=== PATIENT | female | born 1930 | race Caucasian/White ===

== ENCOUNTER 2017-05-29 11:25 | Emergency (ER) | payer OTHER ==
[~2017-05-29] VITALS: Ht 167.6 cm; Wt 65.0 kg
[~2017-05-29 11:25] MED LIST: ASPI81TA82 PO; LISI-360 PO; METO50TA PO; POTA-267 PO; SENN8.6T25 PO; VITA20002 PO; VITA500T10 PO
[2017-05-29 11:30] VITALS: BP 230/103; PULSE 87; RESP 16; TEMP 98.8; O2SAT 95
[2017-05-29] MEDS ORDERED: SODIUM CHLORIDE 0.9% FLUSH 10 ML FLUSH IVF PRN (11:45)
--- NOTE | 2017-05-29 11:45 | PD ---
HPI Chief Complaint: dyspnea Time Seen by Provider: 11:38 Travel History International Travel<30 days: No Contact w/Intl Traveler<30days: No History of Present Illness HPI Patient comes in by EMS complaining of shortness of breath ongoing intermittently for a while, but denies being on an inhaler. Patient states she started having issues with asthma when she turned 71, but does not use an inhaler. Patient states she had an episode yesterday that resolved. Patient states she was talking on the phone with a friend when the episode began today and they called 911 on her. Patient received 2 doses of albuterol and Solu- Medrol 125mg in route this seemed to improve her symptoms. Patient denies any symptoms currently. Denies any chest pain, fevers, cough, nausea, vomiting, abdominal pain, headaches, dizziness, change in vision, loss change in bowel or bladder, numbness or tingling anywhere, neck pain, or back pain. Patient states she has not taken her blood pressure medicine in 2 days secondary to not remembering. Patient states she does not take them on a regular basis as she is not good at remembering to take pills. PFSH Past Medical History Anxiety: Yes Depression: No Cancer: No Cardiovascular Problems: Yes (AORTIC INSUFF, VALVE REPLACEMENT) Diminished Hearing: No Endocrine: No Gastrointestinal Disorders: No Genitourinary: No Hypertension: Yes Immune Disorder: No Implanted Vascular Access Dvce: Yes Musculoskeletal: No Neurologic: Yes Psychiatric: Yes Reproductive: No Respiratory: Yes (ASTHMA) Integumentary: Yes (PSORIASIS) Past Surgical History Cardiac Surgery: Yes (VALVE REPLACEMENT) Joint Replacement: Yes (RIGHT HIP) Oral Surgery: Yes (T & A) Pacemaker: No Tonsillectomy: Yes Social History Alcohol Use: No Tobacco Use: No Substance Use: No Allergies-Medications (Allergen,Severity, Reaction): Coded Allergies: No Known Allergies (Unverified , 05/29/17) Reported Meds & Prescriptions Reported Meds & Active Scripts Active Prednisone 20 Mg Tab 20 Mg PO BID 3 Days Start 05/30/17 Ventolin Hfa 18 GM Inh (Albuterol Sulfate) 90 Mcg/Act Aer 2 Puff INH Q4-6H PRN Use with MDI spacer given to you today. Reported Metoprolol Tartrate 50 Mg Tab 50 Mg PO DAILY Lisinopril 10 Mg Tab 10 Mg PO DAILY Losartan (Losartan Potassium) 25 Mg Tab 12.5 Mg PO DAILY Furosemide 20 Mg Tab 20 Mg PO BID Naproxen 500 Mg Tab 500 Mg PO BID Review of Systems Except as stated in HPI: all other systems reviewed are Neg Physical Exam Narrative GENERAL: Well-developed, well nourished, in no acute distress, and non-ill appearing. SKIN: Focused skin assessment warm and dry. HEAD: Atraumatic. Normocephalic. EYES: Pupils equal and round. EOMI. No scleral icterus. No injection or drainage. ENT: No nasal bleeding or discharge. Mucous membranes pink and moist. NECK: Trachea midline. No JVD. Supple. No nuclear rigidity. CARDIOVASCULAR: Regular rate and rhythm. Murmur appreciated. Radial pulses 2+ , intact, and equal bilaterally. RESPIRATORY: No accessory muscle use. No respiratory distress. Clear to auscultation. Breath sounds equal bilaterally. GASTROINTESTINAL: Abdomen soft, non-tender, nondistended, and no guarding. Hepatic and splenic margins not palpable. No pulsatile mass. MUSCULOSKELETAL: No obvious deformities. No clubbing. No cyanosis. Trace edema bilateral lower extremities MELBA hose in place. Full range of motion. NEUROLOGICAL: Awake and alert. No obvious cranial nerve deficits. Motor grossly within normal limits. Normal speech. PSYCHIATRIC: Appropriate mood and affect; insight and judgment normal. Data Data Last Documented VS Vital Signs Date Time Temp Pulse Resp B/P (MAP) Pulse Ox O2 Delivery O2 Flow Rate FiO2 05/29/17 15:55 74 18 146/66 (92) 94 05/29/17 15:13 Room Air 05/29/17 12:52 98.3 2.00 Orders Orders Complete Blood Count With Diff (05/29/17 11:38) Basic Metabolic Panel (Bmp) (05/29/17 11:38) B-Type Natriuretic Peptide (05/29/17 11:38) Act Partial Throm Time (Ptt) (05/29/17 11:38) Prothrombin Time / Inr (Pt) (05/29/17 11:38) Magnesium (Mg) (05/29/17 11:38) Ckmb (Isoenzyme) Profile (05/29/17 11:38) Troponin I (05/29/17 11:38) Iv Access Insert/Monitor (05/29/17 11:38) Electrocardiogram (05/29/17 11:38) Ecg Monitoring (05/29/17 11:38) Oximetry (05/29/17 11:38) Oxygen Administration (05/29/17 11:38) Chest, Single Ap (05/29/17 11:38) Sodium Chloride 0.9% Flush (Ns Flush) (05/29/17 11:45) Clonidine (Catapres) (05/29/17 14:00) Resp Mdi/Instruction (05/29/17 14:32) Labs Laboratory Tests Test 05/29/17 12:25 White Blood Count 6.1 TH/MM3 Red Blood Count 5.24 MIL/MM3 Hemoglobin 11.7 GM/DL Hematocrit 36.8 % Mean Corpuscular Volume 70.2 FL Mean Corpuscular Hemoglobin 22.4 PG Mean Corpuscular Hemoglobin Concent 31.9 % Red Cell Distribution Width 14.5 % Platelet Count 163 TH/MM3 Mean Platelet Volume 9.5 FL Neutrophils (%) (Auto) 81.1 % Lymphocytes (%) (Auto) 9.7 % Monocytes (%) (Auto) 3.4 % Eosinophils (%) (Auto) 4.5 % Basophils (%) (Auto) 1.3 % Neutrophils # (Auto) 5.0 TH/MM3 Lymphocytes # (Auto) 0.6 TH/MM3 Monocytes # (Auto) 0.2 TH/MM3 Eosinophils # (Auto) 0.3 TH/MM3 Basophils # (Auto) 0.1 TH/MM3 CBC Comment DIFF FINAL Differential Comment Prothrombin Time 10.8 SEC Prothromb Time International Ratio 1.0 RATIO Activated Partial Thromboplast Time 24.7 SEC Blood Urea Nitrogen 14 MG/DL Creatinine 0.91 MG/DL Random Glucose 139 MG/DL Calcium Level 8.6 MG/DL Magnesium Level 2.1 MG/DL Sodium Level 138 MEQ/L Potassium Level 3.8 MEQ/L Chloride Level 104 MEQ/L Carbon Dioxide Level 27.0 MEQ/L Anion Gap 7 MEQ/L Estimat Glomerular Filtration Rate 58 ML/MIN Total Creatine Kinase 48 U/L Troponin I LESS THAN 0.02 NG/ML B-Type Natriuretic Peptide 35 PG/ML MDM Medical Decision Making Medical Screen Exam Complete: Yes Emergency Medical Condition: Yes Interpretation(s) Chest x-ray read by the radiologist shows: No acute disease. EKG reviewed by Dr. Khan shows normal sinus rhythm with ventricular rate of 79. No STEMI. Differential Diagnosis COPD exacerbation, CHF exacerbation, pneumonia, coronary syndrome, electrolyte abnormality, other Narrative Course The patient looks great and improved well with Nebulizer and steroid medication. The patient is moving air well and in no distress nor significant dyspnea, and oxygen saturation is within normal limits. There is no clinical evidence to suggest pneumonia at this time. Diagnosis, plan of care and management were discussed with the patient who agreed with plan and feels better and ready to go home. The patient was instructed to return if worsen, worsening difficulty breathing or wheezing, persistent fever, chest pain or as needed. The patient has a prior history of hypertension and admits to noncompliance with their antihypertensive medications. The patient has no symptoms as well. The patient denied headache, changes in vision, nausea, vomiting, dizziness, weakness or loss of sensation. The patient denied and chest, back or abdominal pain. The patient denies any edema to extremities. The patients blood pressures at discharge were at an acceptable level. I discussed with the patient the importance of continuing daily antihypertensive and to not skip doses or stop medications suddenly without instruction by their primary care physician. The patient was instructed to follow up and potential adjustment of blood pressure medications. Return warnings were given to the patient and the patient agreed with plan of care. Patient in no obvious distress upon re-evaluation. All pertinent laboratory/ Radiology result(s) discussed with patient. Discussed patient with Dr. Cortez prior to discharge, who is in agreement with plan of care and disposition. Patient was asked if they wanted to speak to my attending, which the patient did not wish to do at this time. Any questions/concerns in reference to patient diagnosis/condition discussed and clarified prior to patient's discharge. Reinforced sheer importance of close follow up with patient's primary physician or primary care clinic. Instructed patient to return to ED immediately, if symptoms return/worsen. Patient showed understanding of above instructions. Further instructions and recommendations were detailed in discharge paperwork. Patient ambulated without difficulty out of ED at discharge. Diagnosis Primary Impression: Asthma attack Additional Impressions: Hypertension Qualified Codes: I10 - Essential (primary) hypertension Noncompliance with medication regimen Patient Instructions: Asthma (ED), Chronic Hypertension (ED), General Instructions Additional Instructions: Follow-up with your primary care physician in 3-5 days for reevaluation. Take all medication as prescribed. Take your blood pressure medication as prescribed. Return to the emergency department if symptoms get worse. Med/Other Pt SpecificInfo: Prescription(s) given Scripts Prednisone (Prednisone) 20 Mg Tab 20 MG PO BID for 3 Days, #6 TAB 0 Refills Start 05/30/17 Prov: Bret Cortez MD 05/29/17 Albuterol 18 GM Inh (Ventolin Hfa 18 GM Inh) 90 Mcg/Act Aer 2 PUFF INH Q4-6H Y for SHORTNESS OF BREATH, #1 INHALER 0 Refills Use with MDI spacer given to you today. Prov: Bret Cortez MD 05/29/17 Disposition: 01 DISCHARGE HOME Condition: Stable Josue Ordonez May 29, 2017 11:45
[2017-05-29 12:47] LABS: BASOPHIL # 0.1 TH/MM3 (0-0.2); BASOPHIL % 1.3 % (0.0-2.0); EOSINOPHIL # 0.3 TH/MM3 (0-0.4); EOSINOPHIL % 4.5 % (0.0-4.0); HEMATOCRIT 36.8 % (35.0-46.0); HEMO FLAGS DIFF FINAL; LYMPH % 9.7 % (9.0-44.0); LYMPHOCYTE # 0.6 TH/MM3 (1.0-4.8); MEAN CELL VOLUME 70.2 FL (80.0-100.0); MEAN CORPUSCULAR HEMOGLOBIN 22.4 PG (27.0-34.0); MEAN CORPUSCULAR HGB CONC 31.9 % (32.0-36.0); MONO % 3.4 % (0.0-8.0); NEUT % 81.1 % (16.0-70.0); PLATELET COUNT 163 TH/MM3 (150-450); RED BLOOD COUNT 5.24 MIL/MM3 (4.00-5.30); RED CELL DISTRIBUTION WIDTH 14.5 % (11.6-17.2); WHITE BLOOD COUNT 6.1 TH/MM3 (4.0-11.0)
[2017-05-29 12:52] VITALS: BP 225/90; PULSE 79; RESP 14; TEMP 98.3; O2SAT 96
--- NOTE | 2017-05-29 12:52 | RADRPT ---
EXAM DATE/TIME: 05/29/2017 12:06 [facility] COMPARISON: CHEST SINGLE AP, January 25, 2016, 17:06. INDICATIONS : Short of breath with wheezing. MEDICAL HISTORY : Myocardial infarction. SURGICAL HISTORY : 2011 Heart valve replacement. ENCOUNTER: Initial ACUITY: 1 day PAIN SCORE: 0/10 LOCATION: Bilateral chest FINDINGS: Sternotomy wires, cardiac valvular prosthesis and cardiomegaly noted. No consolidation or effusion. O sseous structures are intact. CONCLUSION: No acute disease. Bhupinder Dixon MD on May 29, 2017 at 12:50 Board Certified Radiologist. This report was verified electronically.
[2017-05-29 12:55] LABS: APTT (PATIENT) 24.7 SEC (24.3-30.1); PROTHROMBIN TIME - PATIENT 10.8 SEC (9.8-11.6)
[2017-05-29] MEDS ORDERED: FURO20TA PO (13:01)
[2017-05-29] MEDS ORDERED: LISI10TA3 PO (13:01)
[2017-05-29] MEDS ORDERED: LOSA25TA PO (13:01)
[2017-05-29] MEDS ORDERED: NAPR500T PO (13:01)
[2017-05-29] MEDS ORDERED: METO50TA PO (13:01)
[2017-05-29 13:26] LABS: ANION GAP 7 MEQ/L (5-15); BLOOD UREA NITROGEN 14 MG/DL (7-18); CHLORIDE 104 MEQ/L (98-107); GLOMERULAR FILTRATION RATE 58 ML/MIN (>89); MAGNESIUM 2.1 MG/DL (1.5-2.5); POTASSIUM 3.8 MEQ/L (3.5-5.1); SODIUM (NA) 138 MEQ/L (136-145)
[2017-05-29 13:29] LABS: CREATINE KINASE 48 U/L (26-192)
[2017-05-29 13:40] VITALS: BP 194/81; PULSE 76; RESP 18; O2SAT 97
[2017-05-29] MEDS ORDERED: cloNIDine HCL 0.1 MG TAB PO ONE (14:00)
[2017-05-29 15:13] VITALS: BP 157/64; PULSE 84; RESP 18; O2SAT 96
[2017-05-29] MEDS ORDERED: PRED20 PO (15:18)
[2017-05-29] MEDS ORDERED: VENTAER INH (15:18)
[2017-05-29 15:55] VITALS: BP 146/66
--- NOTE | 2017-05-30 15:42 | EKG ---
Date Performed: 05/29/2017 Time Performed: 11:51:30 PTAGE: 87 years EKG: Sinus rhythm POSSIBLE LEFT ATRIAL ENLARGEMENT BORDERLINE ECG PREVIOUS TRACING : 01/25/2016 16.19 Compared to prior tracing no significant change DOCTOR: Jason Berg Interpretating Date/Time 05/30/2017 15:40:13
== END 2017-05-29 16:00 | disposition home or self-care (01) ==
LOC: NEPE 11:25
DX: J45.901 Unspecified asthma with (acute) exacerbation (principal); I10 Essential (primary) hypertension; I35.0 Nonrheumatic aortic (valve) stenosis; Z95.2 Presence of prosthetic heart valve; Z91.14 Patient's other noncompliance with medication regimen
CPT/HCPCS: 71010; 80048; 82550; 83735; 83880; 84484; 85025; 85610; 85730; 93005; 94664